=== PATIENT | male | born 1970 | race Caucasian/White ===

== ENCOUNTER 2017-03-08 16:00 | Inpatient (IN) | payer OTHER ==
[~2017-03-08] VITALS: Ht 175.3 cm; Wt 187.3 kg
--- NOTE | ~2017-03-08 | 2DMMODE ---
[facility] [address] [place] [address] 2 D/M-MODE ECHOCARDIOGRAM Name: JIMFOZIA Room #: 548-I ADM IN .R.#: [id number] Admission: 03/08/17 Attend Phys: Jaime Lam, Discharge: Date of : 66 Date of Service: 03/09/17 1046 Report #: [id number] THIS REPORT FOR: //name// APPROVED REPORT Study performed: 03/09/2017 09:53:49 EXAM: Comprehensive 2D, Doppler, and color-flow Echocardiogram Patient Location: Echo lab Room #: 548 Status: routine Other Information Study Quality: Adequate/Technically difficult due to body habitus. Indications Lower extremity edema. Cellulitis. Hx: HTN, morbid obesity 2D Dimensions RVDd: 38.00 mm LVEF(%): 66.85 (>50%) IVSd: 12.00 (7-11mm) LVOT Diam: 23.01 (18-24mm) LVDd: 44.52 mm PWd: 12.41 (7-11mm) Ascending Ao: 29.56 (22-36mm) LVDs: 28.13 (25-40mm) Aortic Root: 34.65 mm Gomez's LVEF: 66.85 % Volumes Left Atrial Volume (Systole) Single Plane 4CH: 62.58 mL Single Plane 2CH: 80.69 mL LA ESV Index: 29.00 mL/m2 Aortic Valve AoV Peak Diego.: 1.55 m/s AO Peak Gr.: 9.58 mmHg LVOT Max P.36 mmHg LVOT Max V: 1.16 m/s VANESSA Vmax: 3.11 cm2 Mitral Valve E/A Ratio: 0.8 MV Decel. Time: 221.26 ms MV E Max Diego.: 0.80 m/s MV A Diego.: 0.99 m/s MV PHT: 64.16 ms [facility] [place] [address] 2 D/M-MODE ECHOCARDIOGRAM Name: FOZIA FERNANDEZ Room #: 548-I ADM IN M.R.#: [id number] Admission: 03/08/17 Attend Phys: Jaime Lam, Discharge: Date of : 66 Date of Service: 03/09/17 1046 Report #: [id number] IVRT: 65.74 ms Pulmonary Valve PV Peak Diego.: 1.56 m/s PV Peak Gr.: 9.80 mmHg Pulmonary Vein P Vein S: 0.56 m/s P Vein A: 0.38 m/s P Vein D: 0.35 m/s P Vein A Dur.: 103.8 msec P Vein S/D Ratio: 1.60 Tricuspid Valve RAP Estimate: 5.00 mmHg Left Ventricle The left ventricle is normal size. There is normal LV segmental wall motion. Mild concentric left ventricular hypertrophy. Left ventricular systolic function is normal. LVEF is 60-65%. Grade I - abnormal relaxation pattern. Right Ventricle The right ventricle is normal size. The right ventricular systolic function is normal. Atria The left atrium size is normal. The right atrium size is normal. Aortic Valve The aortic valve leaflets are not well visualized. No aortic regurgitation is present. There is no aortic valvular stenosis. Mitral Valve The anterior mitral valve leaflet is mildly calcified. There is no mitral valve regurgitation noted. No evidence of mitral valve stenosis. Tricuspid Valve The tricuspid valve is normal in structure. There is no tricuspid valve regurgitation noted. Pulmonic Valve Pulmonic valve is not well visualized. Great Vessels The aortic root is normal in size. The ascending aorta is normal in [facility] [address] [address] 2 D/M-MODE ECHOCARDIOGRAM Name: FOZIA FERNANDEZ Room #: 548-I [facility] IN ..#: [id number] Admission: 03/08/17 Attend Phys: Jaime Lam, Discharge: Date of : 66 Date of Service: 03/09/17 1046 Report #: [id number] size. IVC is normal in size and collapses >50% with inspiration. Pericardium There is no pericardial effusion. <Conclusion> Left ventricular systolic function is normal. LVEF 60-65%. Normal LV segmental wall motion. Grade I diastolic dysfunction The aortic valve leaflets are not well visualized. No aortic regurgitation or stenosis The anterior mitral valve leaflet is mildly calcified. No mitral valve regurgitation noted. Pulmonary artery pressure could not be reliably ascertained There is no pericardial effusion. <ELECTRONICALLY SIGNED> By: Lobo Lopez MD, [facility] 03/09/17 1046 1046 1046 Lobo Lopez MD, FAC /INF
[~2017-03-08 16:00] MED LIST: DOXYCYCLINE 10100 MG PO; NORCO 5-325 TA1 EACH PO; TYLENOL PM EX-1 EACH
[2017-03-08 17:15] VITALS: BP 136/85
[2017-03-08 19:40] VITALS: BP 127/60
[2017-03-09 04:32] VITALS: BP 139/82
[2017-03-09 05:52] LABS: ABSOLUTE NEUTROPHILS 5.1 thou/uL (1.4-8.2); EOSINOPHILS 3.9 % (0.0-3.0); HEMATOCRIT 43.4 % (42.0-52.0); HEMOGLOBIN 14.4 gm/dL (14.0-18.0); LYMPHOCYTES 36.1 % (24.0-44.0); MCHC 33.3 g/dL (28.0-37.0); MONOCYTES 11.5 % (1.0-8.0); PLATELET COUNT 258 thou/uL (150-400); POLYS 47.5 % (36.0-66.0); RBC 4.25 mil/uL (4.50-6.00); RDW 13.5 % (10.5-14.5); WBC 10.6 thou/uL (4.0-11.0)
[2017-03-09 06:00] LABS: MANUAL DIFF NO
[2017-03-09 06:02] LABS: CALCIUM 8.3 mg/dL (8.5-10.1); CREATININE 0.8 mg/dL (0.7-1.3); POTASSIUM 3.4 mmol/L (3.5-5.1)
[2017-03-09 07:34] VITALS: BP 127/64
[2017-03-09 15:21] VITALS: BP 131/80
[2017-03-09 19:41] VITALS: BP 128/68
[2017-03-10 04:01] VITALS: BP 145/86
[2017-03-10 04:40] LABS: ABSOLUTE NEUTROPHILS 5.1 thou/uL (1.4-8.2); BASOPHILS 0.7 % (0.0-2.0); EOSINOPHILS 4.1 % (0.0-3.0); HEMATOCRIT 43.1 % (42.0-52.0); HEMOGLOBIN 14.9 gm/dL (14.0-18.0); LYMPHOCYTES 28.9 % (24.0-44.0); MANUAL DIFF NO; MCH 34.5 pg (26.0-34.0); MCHC 34.6 g/dL (28.0-37.0); MCV 99.8 fL (80.0-100.0); MONOCYTES 11.2 % (1.0-8.0); PLATELET COUNT 265 thou/uL (150-400); POLYS 55.1 % (36.0-66.0); RBC 4.32 mil/uL (4.50-6.00); RDW 13.9 % (10.5-14.5); WBC 9.3 thou/uL (4.0-11.0)
[2017-03-10 04:59] LABS: CALCIUM 8.7 mg/dL (8.5-10.1); CREATININE 0.9 mg/dL (0.7-1.3); POTASSIUM 3.7 mmol/L (3.5-5.1)
[2017-03-10 08:00] VITALS: BP 123/75
[2017-03-10 16:00] VITALS: BP 143/79
[2017-03-10 20:00] VITALS: BP 126/65
[2017-03-11 04:00] VITALS: BP 126/65
[2017-03-11 05:50] LABS: HEMATOCRIT 42.3 % (42.0-52.0); HEMOGLOBIN 14.5 gm/dL (14.0-18.0); MCH 34.7 pg (26.0-34.0); MCHC 34.2 g/dL (28.0-37.0); MCV 101.7 fL (80.0-100.0); PLATELET COUNT 247 thou/uL (150-400); RBC 4.16 mil/uL (4.50-6.00); RDW 13.7 % (10.5-14.5); WBC 8.7 thou/uL (4.0-11.0)
[2017-03-11 05:59] LABS: MANUAL DIFF YES
[2017-03-11 06:18] LABS: ALBUMIN 2.9 g/dL (3.4-5.0); CALCIUM 8.4 mg/dL (8.5-10.1); TOTAL BILIRUBIN 0.6 mg/dL (<0.1-1.0); TOTAL PROTEIN 6.5 g/dL (6.4-8.2)
[2017-03-11 07:31] LABS: ABSOLUTE NEUTROPHILS 5.2 thou/uL (1.4-8.2); METAMYELOCYTES 2 %; TOTAL CELL COUNT 100
[2017-03-11 07:32] LABS: MACROCYTES 1+
[2017-03-11 08:36] VITALS: BP 135/88
[2017-03-12 04:00] VITALS: BP 136/67
[2017-03-12 05:32] LABS: HEMATOCRIT 41.3 % (42.0-52.0); HEMOGLOBIN 14.3 gm/dL (14.0-18.0); MCH 34.8 pg (26.0-34.0); MCHC 34.7 g/dL (28.0-37.0); MCV 100.1 fL (80.0-100.0); PLATELET COUNT 243 thou/uL (150-400); RBC 4.13 mil/uL (4.50-6.00); RDW 13.4 % (10.5-14.5); WBC 8.4 thou/uL (4.0-11.0)
[2017-03-12 05:37] LABS: MANUAL DIFF YES
[2017-03-12 05:56] LABS: ALBUMIN 2.8 g/dL (3.4-5.0); CALCIUM 8.1 mg/dL (8.5-10.1); CREATININE 0.9 mg/dL (0.7-1.3); POTASSIUM 3.9 mmol/L (3.5-5.1); TOTAL BILIRUBIN 0.6 mg/dL (<0.1-1.0); TOTAL PROTEIN 6.3 g/dL (6.4-8.2)
[2017-03-12 07:40] LABS: METAMYELOCYTES 1 %; TOTAL CELL COUNT 100
[2017-03-12 07:42] LABS: ANISOCYTOSIS SLIGHT
[2017-03-12 08:34] VITALS: BP 129/72
[2017-03-12] MEDS ORDERED: KEFLEX500 M1 PO (10:22)
[2017-03-12 14:09] VITALS: BP 129/72
== END 2017-03-12 14:50 | disposition home or self-care (01) | DRG 872 ==
LOC: 5S 16:00
PROVIDERS: Family Medicine; Nurse Practitioner Family
DX: A41.9 Sepsis, unspecified organism (principal); L03.115 Cellulitis of right lower limb; Z68.44 Body mass index [BMI] 60.0-69.9, adult; E66.01 Morbid (severe) obesity due to excess calories; I10 Essential (primary) hypertension; G47.30 Sleep apnea, unspecified; Z90.49 Acquired absence of other specified parts of digestive tract
CPT/HCPCS: 10785

== ENCOUNTER 2017-03-30 11:51 | Emergency (ER) | payer OTHER ==
[~2017-03-30] VITALS: Ht 175.3 cm; Wt 192.8 kg
--- NOTE | ~2017-03-30 | EKG ---
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
[~2017-03-30 11:51] MED LIST changes: +KEFLEX500 M1 PO
[2017-03-30 12:30] LABS: HEMATOCRIT 42.7 % (42.0-52.0); HEMOGLOBIN 14.7 gm/dL (14.0-18.0); MCH 34.6 pg (26.0-34.0); MCHC 34.4 g/dL (28.0-37.0); MCV 100.5 fL (80.0-100.0); PLATELET COUNT 276 thou/uL (150-400); RBC 4.25 mil/uL (4.50-6.00); RDW 13.3 % (10.5-14.5); WBC 8.5 thou/uL (4.0-11.0)
[2017-03-30 12:32] LABS: MANUAL DIFF YES
[2017-03-30 12:36] LABS: ANION GAP 4 mmol/L (7-16); BUN 19 mg/dL (7-18); CALCIUM 8.8 mg/dL (8.5-10.1); CHLORIDE 106 mmol/L (98-107); CO2 28 mmol/L (21-32); CREATININE 0.9 mg/dL (0.7-1.3); GLUCOSE 103 mg/dL (74-106); SODIUM 138 mmol/L (136-145)
[2017-03-30 12:50] LABS: NT-PRO BRAIN NAT PEPTIDE 46 pg/mL (<300); TROPONIN-I < 0.04 ng/mL (<0.04-0.07)
[2017-03-30 13:06] LABS: TOTAL CELL COUNT 100
[2017-03-30 13:07] LABS: ABSOLUTE NEUTROPHILS 4.9 thou/uL (1.4-8.2)
== END 2017-03-30 16:05 | disposition home or self-care (01) ==
LOC: ER 11:51
PROVIDERS: Nurse Practitioner
DX: R07.89 Other chest pain (principal); L03.115 Cellulitis of right lower limb; I10 Essential (primary) hypertension; F31.9 Bipolar disorder, unspecified; Z98.890 Other specified postprocedural states

== ENCOUNTER 2017-05-02 21:20 | Emergency (ER) | payer OTHER ==
[~2017-05-02] VITALS: Ht 175.3 cm; Wt 192.8 kg
--- NOTE | ~2017-05-02 | EKG ---
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
[2017-05-02] MEDS ORDERED: HYDROCODON-ACE1 EAC7 (21:45)
[2017-05-02 21:58] LABS: HEMATOCRIT 44.5 % (42.0-52.0); HEMOGLOBIN 15.5 gm/dL (14.0-18.0); MANUAL DIFF YES; MCH 34.6 pg (26.0-34.0); MCHC 34.9 g/dL (28.0-37.0); MCV 99.1 fL (80.0-100.0); PLATELET COUNT 275 thou/uL (150-400); RBC 4.49 mil/uL (4.50-6.00); RDW 13.7 % (10.5-14.5); WBC 10.8 thou/uL (4.0-11.0)
[2017-05-02 22:04] LABS: ANION GAP 7 mmol/L (7-16); BUN 18 mg/dL (7-18); CALCIUM 8.7 mg/dL (8.5-10.1); CHLORIDE 105 mmol/L (98-107); CO2 26 mmol/L (21-32); GLUCOSE 99 mg/dL (74-106); POTASSIUM 3.9 mmol/L (3.5-5.1); SODIUM 138 mmol/L (136-145)
[2017-05-02 22:13] LABS: ALBUMIN 3.3 g/dL (3.4-5.0); ALKALINE PHOSPHATASE 70 U/L (46-116); SGOT 17 U/L (15-37); SGPT 30 U/L (30-65); TOTAL BILIRUBIN 0.4 mg/dL (<0.1-1.0); TOTAL PROTEIN 7.2 g/dL (6.4-8.2); TROPONIN-I < 0.04 ng/mL (<0.04-0.07)
[2017-05-02 22:49] LABS: ABSOLUTE NEUTROPHILS 6.5 thou/uL (1.4-8.2); TOTAL CELL COUNT 100
[2017-05-02 22:50] LABS: ANISOCYTOSIS 1+
[2017-05-02 23:24] LABS: PROTIME 10.5 Seconds (9.3-11.4)
== END 2017-05-03 00:03 | disposition home or self-care (01) ==
LOC: ER 21:20
PROVIDERS: Physician Assistant
DX: R79.1 Abnormal coagulation profile (principal); I10 Essential (primary) hypertension; G47.30 Sleep apnea, unspecified; F31.9 Bipolar disorder, unspecified; Z90.89 Acquired absence of other organs; Z71.1 Person with feared health complaint in whom no diagnosis is made

== ENCOUNTER 2017-10-24 13:24 | Emergency (ER) | payer OTHER ==
[~2017-10-24] VITALS: Ht 175.3 cm; Wt 200.5 kg
--- NOTE | ~2017-10-24 | EKG ---
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
[~2017-10-24 13:24] MED LIST changes: +HYDROCODON-ACE1 EAC7
[2017-10-24] MEDS ORDERED: KEFLEX500 M1 PO (13:36)
[2017-10-24] MEDS ORDERED: VENTOLIN HFA 1818 GM INH (13:37)
[2017-10-24] MEDS ORDERED: MAXZIDE-25 MG1 EACH PO (13:37)
[2017-10-24 13:43] LABS: ABSOLUTE NEUTROPHILS 5.3 thou/uL (1.4-8.2); BASOPHILS 0.8 % (0.0-2.0); EOSINOPHILS 1.9 % (0.0-3.0); HEMATOCRIT 44.2 % (42.0-52.0); HEMOGLOBIN 15.2 gm/dL (14.0-18.0); LYMPHOCYTES 25.4 % (24.0-44.0); MCH 34.2 pg (26.0-34.0); MCHC 34.4 g/dL (28.0-37.0); MCV 99.6 fL (80.0-100.0); MONOCYTES 10.3 % (1.0-8.0); PLATELET COUNT 245 thou/uL (150-400); POLYS 61.6 % (36.0-66.0); RBC 4.44 mil/uL (4.50-6.00); RDW 13.7 % (10.5-14.5); WBC 8.7 thou/uL (4.0-11.0)
[2017-10-24 13:53] LABS: ANION GAP 8 mmol/L (7-16); BUN 16 mg/dL (7-18); CALCIUM 9.1 mg/dL (8.5-10.1); CHLORIDE 106 mmol/L (98-107); CO2 25 mmol/L (21-32); CREATININE 0.9 mg/dL (0.7-1.3); GLUCOSE 106 mg/dL (74-106); POTASSIUM 3.6 mmol/L (3.5-5.1); SODIUM 139 mmol/L (136-145)
[2017-10-24 14:01] LABS: ALBUMIN 3.4 g/dL (3.4-5.0); SGOT 17 U/L (15-37); SGPT 31 U/L (30-65); TOTAL BILIRUBIN 0.6 mg/dL (<0.1-1.0); TROPONIN-I < 0.04 ng/mL (<0.06)
[2017-10-24 17:11] VITALS: BP 144/91
== END 2017-10-24 17:20 | disposition home or self-care (01) ==
LOC: ER 13:24
PROVIDERS: Nurse Practitioner Family
DX: R07.9 Chest pain, unspecified (principal); R06.09 Other forms of dyspnea; F41.9 Anxiety disorder, unspecified; I10 Essential (primary) hypertension; G47.30 Sleep apnea, unspecified

== ENCOUNTER 2019-04-04 09:56 | Emergency (ER) | payer OTHER ==
[~2019-04-04] VITALS: Ht 175.3 cm; Wt 199.6 kg
[~2019-04-04 09:56] MED LIST changes: +MAXZIDE-25 MG1 EACH PO; +VENTOLIN HFA 1818 GM INH
[2019-04-04 10:30] LABS: ABSOLUTE NEUTROPHILS 5.1 thou/uL (1.4-8.2); BASOPHILS 0.8 % (0.0-2.0); EOSINOPHILS 1.9 % (0.0-3.0); HEMATOCRIT 41.7 % (42.0-52.0); HEMOGLOBIN 14.1 gm/dL (14.0-18.0); LYMPHOCYTES 26.8 % (24.0-44.0); MCH 33.1 pg (26.0-34.0); MCHC 33.9 g/dL (28.0-37.0); MCV 97.9 fL (80.0-100.0); MONOCYTES 11.3 % (1.0-8.0); PLATELET COUNT 330 thou/uL (150-400); POLYS 59.2 % (36.0-66.0); RBC 4.26 mil/uL (4.50-6.00); RDW 15.1 % (10.5-14.5); WBC 8.6 thou/uL (4.0-11.0)
[2019-04-04 10:34] LABS: ANION GAP 6 mmol/L (7-16); BUN 18 mg/dL (7-18); CALCIUM 8.8 mg/dL (8.5-10.1); CHLORIDE 104 mmol/L (98-107); CO2 28 mmol/L (21-32); CREATININE 0.8 mg/dL (0.7-1.3); GLUCOSE 100 mg/dL (74-106); POTASSIUM 3.9 mmol/L (3.5-5.1); SODIUM 138 mmol/L (136-145)
[2019-04-04 10:42] LABS: TROPONIN-I <0.06 ng/mL (<0.06)
[2019-04-04 11:28] VITALS: BP 133/59
--- NOTE | 2019-04-04 13:45 | EKG ---
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
== END 2019-04-04 13:22 | disposition home or self-care (01) ==
LOC: ER 09:56
PROVIDERS: Emergency Medicine
DX: R06.02 Shortness of breath (principal); R07.89 Other chest pain; I10 Essential (primary) hypertension; F31.9 Bipolar disorder, unspecified; G47.30 Sleep apnea, unspecified; Z90.89 Acquired absence of other organs